=== PATIENT | male | born 1945 | race Caucasian/White ===

== ENCOUNTER 2024-02-19 08:23 | Outpatient (RCR) | payer MEDICARE, BC, SELFPAY ==
--- NOTE | 2024-01-28 14:26 | CTCFLWUP_ITS ---
[facility] 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 7000 cGy via VMAT with weekly carboplatin paclitaxel. Patient had a difficult period where he was admitted with aspiration pneumonia and swallowing difficu lties and G-tube had to be placed. Now out of hospital and doing better overall. Has a lot of mucus in oral cavity still. Discussed the PET scan which showed complete response 01/23/2024. Weight 145.5 up from 2 months ago. I will see him again in 3 months and may refer him for swallowing exercises if difficulties not impro ving significantly. Electronically signed by: Shivam Hinds M.D. 01/28/2024 2:23 PM
== END 2024-02-22 23:59 | disposition home or self-care (01) ==
LOC: SCTC 08:23
PROVIDERS: PCP Family Medicine; Referring Provider Family Medicine; Visit Provider Nurse Practitioner Family
DX: C09.9 Malignant neoplasm of tonsil, unspecified (principal); C79.89 Secondary malignant neoplasm of other specified sites; Z92.3 Personal history of irradiation; Z93.1 Gastrostomy status; R13.10 Dysphagia, unspecified
CPT/HCPCS: 99212; 99213; G0463

== ENCOUNTER 2024-04-27 11:25 | Outpatient (RCR) | payer MEDICARE, BC, SELFPAY ==
--- NOTE | 2024-04-27 12:07 | CTCFLWUP_ITS ---
[facility] [address] [place], [place] [address] FOLLOW-UP NOTE Date: 04/27/2024 MR#: [id number] Name: SOSA PRIEST : 1945 Dx: C09.0 Malignant neoplasm of tonsillar fossa Identification. Patient with left tonsillar CA with neck mets undergone chemoradiation between 08/26/2023 through 11/01/2023 with excellent response with PET scan 01/23/2024 showing complete response. Patient developed nutritional issues due to swallowing difficulties as well as inability to open his jaw very much. Currently using G-tube for most of his nutrition. Also getting physical therapy to widen his narrow jaw opening. As I looked at his mouth there was no sign of recurrence in his tonsillar area or the neck. The G-tube appeared to have some moldy substance in the distal end of the tube. Recommended that he call Dr. Sandoval regarding the G-tube situation. Recommended to continue with the physical therapy for jaw opening exercises and I will see him again in 3 months time. Electronically signed by: Shivam Hinds M.D. 04/27/2024 12:05 PM
== END 2024-05-22 23:59 | disposition home or self-care (01) ==
LOC: SCTC 11:25
PROVIDERS: PCP Family Medicine; Referring Provider Family Medicine; Visit Provider Radiology Therapeutic Radiology
DX: C09.0 Malignant neoplasm of tonsillar fossa (principal); R13.10 Dysphagia, unspecified; Z93.1 Gastrostomy status
CPT/HCPCS: 99213; G0463

== ENCOUNTER → 2024-05-12 | Outpatient (CLI) | payer MEDICARE, BC, SELFPAY ==
[2024-05-12 09:09] LABS: Collection Type, Urine Clean Catch; WBC,Urine 0 /hpf (0-5)
[2024-05-12 09:34] LABS: Basophils % (Auto) 1 % (0-2.5); Eosinophils # (Auto) 0.2 Thou/mm3 (0.0-0.5); Eosinophils % (Auto) 2 % (0-10); Hematocrit 40.8 % (41.0-53.0); Hemoglobin 13.9 g/dL (13.5-16.0); Immature Granulocytes % (Auto) 0 % (0-0); Immature Granulocytes Auto 0.03 Thou/mm3 (0.00-0.00); Lymphocytes # (Auto) 0.7 Thou/mm3 (1.0-4.8); Lymphocytes % (Auto) 9 % (10-50); Mean Corpuscular HGB Conc 34.1 g/dl (31.0-37.0); Mean Corpuscular Hemoglobin 31.2 pg (25.0-35.0); Mean Corpuscular Volume 92 fL (80-100); Monocytes # (Auto) 0.8 Thou/mm3 (0.0-0.8); Monocytes % (Auto) 11 % (0-12); Neutrophils % (Auto) 78 % (37-80); Nucleated Red Blood Cell % 0 /100 WBC (0); Platelet Count 206 Thou/mm3 (140-440); RDW Standard Deviation 45.1 fL (35.1-43.9); Red Blood Count 4.45 Miln/mm3 (4.50-5.90); White Blood Count 7.8 Thou/mm3 (3.8-10.6)
[2024-05-12 09:48] LABS: Glucose Estimated Average 177 mg/dL (80-131); Hemoglobin A1C 7.8 % Hgb (4.8-6.0)
[2024-05-12 10:00] LABS: Creatinine MALB Rnd Ur 47 mg/dL (30-125); Microalbumin Creat Ratio 62 mg/gCrea (<30); Microalbumin, Random Urine 29 mg/L (0-300)
[2024-05-12 10:04] LABS: Alanine Aminotransferase 24 U/L (10-49); Albumin, Serum 4.4 gm/dL (3.4-4.8); Albumin/Globulin Ratio 1.8 (1.2-2.2); Alkaline Phosphatase 72 U/L (46-116); Anion Gap 7 (7-16); Aspartate Amino Transferase 19 U/L (0-34); BUN/Creatinine Ratio 33 Ratio (12-20); Bilirubin,Total 0.6 mg/dL (0.3-1.2); Blood Urea Nitrogen 20 mg/dL (9-23); Calcium 9.9 mg/dL (8.3-10.6); Calcium (Corrected) 9.9 mg/dL (8.5-10.1); Carbon Dioxide 30.2 mMol/L (20.0-31.0); Cardiac Risk Estimate 3.6 RATIO (4.0-6.7); Chloride 97 mMol/L (98-107); Cholesterol 187 mg/dL (132-200); Creatinine (Component) 0.6 mg/dL (0.6-1.3); Globulin 2.4 gm/dL (2.3-3.5); Glucose 163 mg/dL (74-106); HDL Cholesterol 52 mg/dL (40-60); LDL Cholesterol,Calculated 116 mg/dL (0-130); Osmolality,Calculated 274 (275-295); Potassium 4.7 mMol/L (3.4-5.1); Sodium 134 mMol/L (136-145); Total Protein 6.8 gm/dL (5.7-8.2); Triglycerides 94 mg/dL (30-150); eGFR > 60 See Note
[2024-05-12 10:10] LABS: Amorphous Crystals,Urine Present (Absent); Bilirubin,Urine Negative (Negative); Blood,Urine Negative (Negative); Clarity,Urine Turbid (Clear/Hazy); Color,Urine Lt-Yellow (Lt Yel-Yel); Glucose, Urine Negative (Negative); Ketones,Urine Negative (Negative); Leukocyte Esterase,Urine Negative (Negative); Nitrite,Urine Negative (Negative); PH,Urine 7.5 (5.0-7.0); Protein,Urine Trace (Neg - Trace); RBC,Urine 3 /hpf (0-3); Specific Gravity,Urine 1.017 (1.001-1.035); Squamous Epithelial Cell,Urine < 1 /hpf (0-5); Urobilinogen,Urine Negative mg/dL (0.0-1.0)
== END | disposition home or self-care (01) ==
LOC: COPL 08:49
PROVIDERS: PCP Family Medicine; Referring Provider Family Medicine; Visit Provider Family Medicine
DX: Z00.00 Encounter for general adult medical examination without abnormal findings (principal); E11.65 Type 2 diabetes mellitus with hyperglycemia; E78.2 Mixed hyperlipidemia; I10 Essential (primary) hypertension; D64.9 Anemia, unspecified; C09.8 Malignant neoplasm of overlapping sites of tonsil
CPT/HCPCS: 36415; 80053; 80061; 81001; 82043; 82570; 83036; 85025

== ENCOUNTER 2024-08-04 11:23 | Outpatient (RCR) | payer MEDICARE, BC, SELFPAY ==
--- NOTE | 2024-08-04 11:57 | CTCFLWUP_ITS ---
[facility] [address] [place], [place] [address] FOLLOW-UP NOTE Date: 08/04/2024 MR#: [id number] Name: SOSA PRIEST : 1945 Dx: C09.0 Malignant neoplasm of tonsillar fossa Identification. Patient with left tonsillar CA with neck mets underwent chemoradiation 09/12/2023 through 11/01/2019 fourth with excellent response with PET scan 01/23/2024 showing complete response. Developed nutritional issues due to swallowing difficulties as well as inability to open his jaw very much. Currently using G-tube for most of his nutrition. Getting PT to widen his narrow jaw opening. No suspicious masses seen or felt. Patient's condition is improving ND tube will be removed. I will see the patient again in 4 months. Electronically signed by: Shivam Hinds M.D. 08/04/2024 11:54 AM
== END 2024-08-22 23:59 | disposition home or self-care (01) ==
LOC: SCTC 11:23
PROVIDERS: PCP Family Medicine; Referring Provider Family Medicine; Visit Provider Radiology Therapeutic Radiology
DX: C09.9 Malignant neoplasm of tonsil, unspecified (principal); C79.89 Secondary malignant neoplasm of other specified sites; Z93.1 Gastrostomy status; Z92.3 Personal history of irradiation
CPT/HCPCS: 99212; G0463

== ENCOUNTER 2024-09-07 08:55 | Day surgery (SDC) | payer MEDICARE, BC, SELFPAY ==
[2024-09-07] VITALS (9 sets, daily range): BP systolic 124–220; BP diastolic 74–123; PULSE 65–91; RESP 12–19; TEMP 36.5–37.1; O2SAT 93–100; BMI 27.3
[2024-09-07] MEDS: SODIUM CHLORIDE 0.9% 500 ML 500 ML 20 ML IV (10:48)
[2024-09-07] MEDS: MIDAZOLAM INJ 1 MG/ML VIAL 2 ML (ASD USE ONLY) 2 MG IVP (10:50)
[2024-09-07] MEDS: DiphenhydrAMINE INJ 50 MG/ML VIAL 25 MG IVP (10:50)
[2024-09-07] MEDS: fentaNYL CIT INJ 50 mCg/ML AMP 2ML (ASD USE ONLY) IVP (10:50)
[2024-09-07] MEDS: hydrALAZINE INJ 20 MG/ML VIAL 10 MG IVP (10:55)
== END 2024-09-07 11:47 | disposition home or self-care (01) ==
PROVIDERS: PCP Family Medicine; Referring Provider Specialist; Visit Provider Specialist
PROC: (CPT 43239; principal; 2024-09-07 10:45)
DX: Z43.1 Encounter for attention to gastrostomy (principal); Z85.21 Personal history of malignant neoplasm of larynx
CPT/HCPCS: 43247; J0360; J1200; J2250; J3010; J7040

== ENCOUNTER → 2024-09-15 | Outpatient (CLI) | payer MEDICARE, BC, SELFPAY ==
[2024-09-15 09:45] LABS: Basophils # (Auto) 0.1 Thou/mm3 (0.0-0.2); Basophils % (Auto) 1 % (0-2.5); Eosinophils # (Auto) 0.2 Thou/mm3 (0.0-0.5); Eosinophils % (Auto) 2 % (0-10); Hematocrit 36.7 % (41.0-53.0); Hemoglobin 13.1 g/dL (13.5-16.0); Immature Granulocytes % (Auto) 0 % (0-0); Immature Granulocytes Auto 0.04 Thou/mm3 (0.00-0.00); Lymphocytes # (Auto) 0.8 Thou/mm3 (1.0-4.8); Lymphocytes % (Auto) 7 % (10-50); Mean Corpuscular HGB Conc 35.7 g/dl (31.0-37.0); Mean Corpuscular Hemoglobin 31.7 pg (25.0-35.0); Mean Corpuscular Volume 89 fL (80-100); Monocytes # (Auto) 0.8 Thou/mm3 (0.0-0.8); Monocytes % (Auto) 7 % (0-12); Neutrophils # (Auto) 9.1 Thou/mm3 (1.8-7.7); Neutrophils % (Auto) 82 % (37-80); Nucleated Red Blood Cell % 0 /100 WBC (0); Platelet Count 214 Thou/mm3 (140-440); RDW Standard Deviation 43.3 fL (35.1-43.9); Red Blood Count 4.13 Miln/mm3 (4.50-5.90)
[2024-09-15 09:55] LABS: Glucose Estimated Average 157 mg/dL (80-131); Hemoglobin A1C 7.1 % Hgb (4.8-6.0)
[2024-09-15 10:01] LABS: Alanine Aminotransferase 13 U/L (10-49); Albumin, Serum 4.4 gm/dL (3.4-4.8); Albumin/Globulin Ratio 1.8 (1.2-2.2); Alkaline Phosphatase 59 U/L (46-116); Anion Gap 7 (7-16); Aspartate Amino Transferase 16 U/L (0-34); BUN/Creatinine Ratio 18 Ratio (12-20); Bilirubin,Total 0.8 mg/dL (0.3-1.2); Blood Urea Nitrogen 14 mg/dL (9-23); Calcium 9.5 mg/dL (8.3-10.6); Calcium (Corrected) 9.5 mg/dL (8.5-10.1); Carbon Dioxide 30.3 mMol/L (20.0-31.0); Chloride 97 mMol/L (98-107); Creatinine (Component) 0.8 mg/dL (0.6-1.3); Globulin 2.4 gm/dL (2.3-3.5); Glucose 243 mg/dL (74-106); Osmolality,Calculated 276 (275-295); Potassium 3.8 mMol/L (3.4-5.1); Sodium 134 mMol/L (136-145); Total Protein 6.8 gm/dL (5.7-8.2); eGFR > 60 See Note
== END | disposition home or self-care (01) ==
LOC: COPL 08:50
PROVIDERS: PCP Family Medicine; Referring Provider Family Medicine; Visit Provider Family Medicine
DX: E11.65 Type 2 diabetes mellitus with hyperglycemia (principal); I10 Essential (primary) hypertension; C09.8 Malignant neoplasm of overlapping sites of tonsil
CPT/HCPCS: 36415; 80053; 83036; 85025

== ENCOUNTER 2024-12-22 10:59 | Outpatient (RCR) | payer MEDICARE, BC, SELFPAY ==
--- NOTE | 2024-12-22 11:50 | CTCFLWUP_ITS ---
[facility] [address] [place], [place] [address] FOLLOW-UP NOTE Date: 12/22/2024 MR#: [id number] Name: SOSA PRIEST : 1945 Dx: C09.0 Malignant neoplasm of tonsillar fossa Identification. Patient with left tonsillar CA with neck mets underwent chemoradiation 09/12/2023 through 11/01/2023 with excellent response with PET scan 01/23/2024 showing complete response. Developed nutrition issues due to swallowing difficulty as well as inability to open the jaw very much. PT has improved his swallowing, now has gotten rid of the G-tube. Patient states that he is swallowing though improved still has at times feel like food is stuck in the throat. Careful type of food that he eats and eating slowly. Examined his oral cavity neck essentially unremarkable. Assessment.#1. P16 positive T3 N1 CA of left tonsillar region # 2 Complete response with chemoradiation completed 11/01/2023. #3. Clinically improving, G-tube now removed with some intermittent swallowing difficulties. #4. Does not feel that he needs a ENT eval at this time although this was recommended. #5. I will see him in 4 months with PET scan ordered for February. Cc: Elkin Cho MD. Electronically signed by: Shivam Hinds M.D. 12/22/2024 11:48 AM
== END 2024-12-22 23:59 | disposition home or self-care (01) ==
LOC: SCTC 10:59
PROVIDERS: PCP Family Medicine; Referring Provider Family Medicine; Visit Provider Radiology Therapeutic Radiology
DX: C09.0 Malignant neoplasm of tonsillar fossa (principal); Z92.3 Personal history of irradiation
CPT/HCPCS: 99212; G0463